=== PATIENT | female | born 1980 | race Native Hawaiian/Other Pacific Islander ===

== ENCOUNTER 2016-10-08 07:56 | Outpatient (CLI) | payer OTHER ==
[~2016-10-08 07:56] MED LIST: ACET7.5T70 PO; AMBIEN5 MG PO; AMITRIPTYLIN75 MG PO; AMOX500C85 PO; BUT/APAP/CA1 PO; CELEXA10 MG PO; CETI10TA PO; CLON1TAB18 PO; FLUO20CA6 PO; FLUT0.05 NAS; IMITREX100 MG PO; LORCET PLUS 7.51 TAB PO; PROM25TA52 PO; PROZAC10 MG PO; TOPAMAX200 MG OR; Z-PAK PO
[2016-10-08 08:15] LABS: PLATELET COUNT 286 K/uL (152-353)
[2016-10-08 08:27] LABS: POTASSIUM 3.5 mmol/L (3.6-5.2); SODIUM 135 mmol/L (136-145)
== END 2016-10-08 08:56 | disposition home or self-care (01) ==
LOC: LABW 07:56
PROVIDERS: Specialist
DX: R40.4 Transient alteration of awareness (principal); G43.709 Chronic migraine without aura, not intractable, without status migrainosus
CPT/HCPCS: 36415; 80053; 80201; 85027; 85651; 86039

== ENCOUNTER 2016-11-10 21:18 | Outpatient (CLI) | payer OTHER | END 2016-11-10 21:22 | disposition short-term general hospital (02) | LOC: AMB 21:18 | DX: G40.89 Other seizures (principal) | CPT/HCPCS: A0425; A0427 ==

== ENCOUNTER 2016-11-10 21:25 | Emergency (ER) | payer OTHER ==
[~2016-11-10] VITALS: Ht 152.4 cm; Wt 49.4 kg
[2016-11-10 21:49] LABS: PLATELET COUNT 285 K/uL (152-353)
[2016-11-10 21:59] LABS: POTASSIUM 3.9 mmol/L (3.6-5.2); SODIUM 133 mmol/L (136-145)
[2016-11-10 23:00] VITALS: BP 99/70; TEMP 98.4
== END 2016-11-10 23:10 | disposition home or self-care (01) ==
LOC: ED 21:25
PROVIDERS: Emergency Medicine
DX: R56.9 Unspecified convulsions (principal); A59.01 Trichomonal vulvovaginitis
CPT/HCPCS: 36415; 80053; 81000; 81025; 82550; 84484; 85027; 96374; 99283; J2405

== ENCOUNTER 2016-11-15 00:16 | Emergency (ER) | payer OTHER ==
[~2016-11-15] VITALS: Ht 152.4 cm; Wt 49.4 kg
[2016-11-15 00:51] LABS: PLATELET COUNT 335 K/uL (152-353)
[2016-11-15 00:57] LABS: POTASSIUM 3.5 mmol/L (3.6-5.2); SODIUM 136 mmol/L (136-145)
[2016-11-15 01:50] VITALS: BP 90/50; TEMP 98.1
== END 2016-11-15 02:04 | disposition home or self-care (01) ==
LOC: ED 00:16
DX: R56.9 Unspecified convulsions (principal); R51 Headache
CPT/HCPCS: 80053; 80307; 81000; 85027; 96361; 96374; 96375; 96376; 99284; G0479; J1100; J1200; J1885; J2405

== ENCOUNTER 2016-12-10 14:04 | Outpatient (CLI) | payer OTHER ==
[2016-12-10 14:25] LABS: POTASSIUM 3.9 mmol/L (3.6-5.2); SODIUM 131 mmol/L (136-145)
== END 2016-12-10 19:09 | disposition home or self-care (01) ==
LOC: LABW 14:04
PROVIDERS: Specialist
DX: R40.4 Transient alteration of awareness (principal)
CPT/HCPCS: 36415; 80048

== ENCOUNTER 2017-02-11 18:06 | Outpatient (CLI) | payer OTHER ==
[2017-02-11] MEDS ORDERED: HYDR10TA47 PO (18:16)
[2017-02-11] MEDS ORDERED: KEPPRA XR500 MG PO (18:16)
== END 2017-02-11 18:08 | disposition short-term general hospital (02) ==
LOC: AMB 18:06
DX: G40.89 Other seizures (principal)
CPT/HCPCS: A0425; A0427

== ENCOUNTER 2017-02-11 18:12 | Emergency (ER) | payer OTHER ==
[~2017-02-11] VITALS: Ht 152.4 cm; Wt 49.9 kg
[2017-02-11] MEDS ORDERED: KEPPRA XR500 MG PO (18:16)
[2017-02-11] MEDS ORDERED: HYDR10TA47 PO (18:16)
[2017-02-11 19:40] VITALS: BP 109/78; TEMP 98
== END 2017-02-11 19:47 | disposition home or self-care (01) ==
LOC: ED 18:12
DX: R56.9 Unspecified convulsions (principal)
CPT/HCPCS: 96361; 96374; 96376; 99284; J2060

== ENCOUNTER 2017-03-02 19:55 | Outpatient (CLI) | payer OTHER ==
[~2017-03-02 19:55] MED LIST changes: +HYDR10TA47 PO; +KEPPRA XR500 MG PO
== END 2017-03-02 19:58 | disposition short-term general hospital (02) ==
LOC: AMB 19:55
DX: G40.89 Other seizures (principal)
CPT/HCPCS: A0425; A0427

== ENCOUNTER 2017-03-02 20:00 | Emergency (ER) | payer OTHER ==
[~2017-03-02] VITALS: Ht 149.9 cm; Wt 56.7 kg
[2017-03-02 20:48] LABS: PLATELET COUNT 341 K/uL (152-353)
[2017-03-02 20:56] LABS: POTASSIUM 3.3 mmol/L (3.6-5.2); SODIUM 135 mmol/L (136-145)
[2017-03-02 22:05] VITALS: BP 110/83; TEMP 98.1
== END 2017-03-02 22:08 | disposition home or self-care (01) ==
LOC: ED 20:00
DX: R56.9 Unspecified convulsions (principal); G43.909 Migraine, unspecified, not intractable, without status migrainosus
CPT/HCPCS: 80053; 80307; 81000; 85027; 93005; 96361; 96374; 96375; 99284; G0479; J1885; J2405

== ENCOUNTER 2018-03-21 10:40 | Outpatient (CLI) | payer OTHER ==
[2018-03-21 11:00] LABS: PLATELET COUNT 324 K/uL (152-353)
[2018-03-21 11:13] LABS: POTASSIUM 3.2 mmol/L (3.6-5.2)
== END 2018-03-21 22:37 | disposition home or self-care (01) ==
LOC: LABW 10:40
PROVIDERS: Specialist
DX: G40.309 Generalized idiopathic epilepsy and epileptic syndromes, not intractable, without status epilepticus (principal); Z79.891 Long term (current) use of opiate analgesic
CPT/HCPCS: 36415; 80053; 80307; 82542; 85027

== ENCOUNTER 2018-12-23 12:07 | Outpatient (CLI) | payer OTHER ==
[2018-12-23 13:13] LABS: PLATELET COUNT 341 K/uL (152-353)
[2018-12-23 13:42] LABS: POTASSIUM 3.7 mmol/L (3.6-5.2)
== END 2018-12-23 19:53 | disposition home or self-care (01) ==
LOC: LABW 12:07
PROVIDERS: Nurse Practitioner
DX: R53.82 Chronic fatigue, unspecified (principal); E78.00 Pure hypercholesterolemia, unspecified; E87.6 Hypokalemia; R73.9 Hyperglycemia, unspecified
CPT/HCPCS: 36415; 80048; 80061; 82306; 83036; 84443; 85027

== ENCOUNTER 2019-07-04 09:32 | Outpatient (CLI) | payer OTHER | END 2019-07-04 23:42 | disposition home or self-care (01) | LOC: RAD 09:32 | DX: J41.0 Simple chronic bronchitis (principal) ==

== ENCOUNTER 2019-07-05 10:43 | Outpatient (CLI) | payer OTHER ==
[2019-07-05 11:24] LABS: PLATELET COUNT 329 K/uL (152-353)
[2019-07-05 11:32] LABS: POTASSIUM 3.8 mmol/L (3.6-5.2)
== END 2019-07-05 23:43 | disposition home or self-care (01) ==
LOC: LABW 10:43
PROVIDERS: Internal Medicine
DX: K62.5 Hemorrhage of anus and rectum (principal)
CPT/HCPCS: 36415; 80048; 85027

== ENCOUNTER 2019-07-06 08:38 | Day surgery (SDC) | payer OTHER ==
[2019-07-06 09:12] LABS: PLATELET COUNT 331 K/uL (152-353)
[2019-07-06 09:20] LABS: POTASSIUM 3.4 mmol/L (3.6-5.2)
== END 2019-07-06 11:20 | disposition home or self-care (01) ==
LOC: OR 08:38
PROVIDERS: Internal Medicine
PROC: 0DJD8ZZ Inspection of Lower Intestinal Tract, Via Natural or Artificial Opening Endoscopic (ICD-10-PCS; principal; 2019-07-06)
DX: K92.1 Melena (principal); R19.4 Change in bowel habit
CPT/HCPCS: 80053; 85027

== ENCOUNTER 2019-07-13 07:34 | Day surgery (SDC) | payer OTHER | END 2019-07-13 11:12 | disposition home or self-care (01) | LOC: OR 07:34 | PROC: 0DJD8ZZ Inspection of Lower Intestinal Tract, Via Natural or Artificial Opening Endoscopic (ICD-10-PCS; principal; 2019-07-13) | DX: K92.1 Melena (principal) | CPT/HCPCS: J1100; J2001; J2250; J2704; J2765 ==

== ENCOUNTER 2019-07-19 08:00 | Observation (INO) | payer OTHER ==
[~2019-07-19] VITALS: Ht 149.9 cm; Wt 63.8 kg
[2019-07-19 09:17] VITALS: BP 101/71; TEMP 98.1; Ht 149.9 cm; Wt 63.8 kg
[2019-07-19 10:49] LABS: PLATELET COUNT 308 K/uL (152-353)
[2019-07-19 11:27] LABS: POTASSIUM 3.9 mmol/L (3.6-5.2)
[2019-07-19 12:00] VITALS: BP 95/64; TEMP 98.3
[2019-07-19] MEDS ORDERED: HYDR10TA47A PO (14:01)
[2019-07-19] MEDS ORDERED: APRODINE1 TAB PO (14:03)
[2019-07-19] MEDS ORDERED: FLUOXETINE40 MG PO (14:04)
[2019-07-19] MEDS ORDERED: CLONAZEP ODT1 MG PO (14:04)
[2019-07-19] MEDS ORDERED: BLISOVI FE 1.5/1 TAB PO (14:05)
[2019-07-19] MEDS ORDERED: HYDROCHLOROT12.5 M1 PO (14:07)
[2019-07-19] MEDS ORDERED: KEPPRA1000 MG PO (14:08)
[2019-07-19] MEDS ORDERED: RANI150T78 PO (14:08)
[2019-07-19 16:00] VITALS: BP 103/74; TEMP 98.3
[2019-07-19 20:03] VITALS: BP 99/69; TEMP 98.4
[2019-07-19 23:32] VITALS: BP 104/73; TEMP 97.5
[2019-07-20] VITALS (10 sets, daily range): BP systolic 85–106; BP diastolic 51–72; TEMP 96.8–98.3
== END 2019-07-20 13:00 | disposition home or self-care (01) ==
LOC: MED/SURG 08:00
PROVIDERS: ADMIT Internal Medicine
PROC: 0DJD8ZZ Inspection of Lower Intestinal Tract, Via Natural or Artificial Opening Endoscopic (ICD-10-PCS; principal; 2019-07-20)
DX: K92.0 Hematemesis (principal); E04.8 Other specified nontoxic goiter; J43.9 Emphysema, unspecified; M15.8 Other polyosteoarthritis; H54.8 Legal blindness, as defined in USA; G40.802 Other epilepsy, not intractable, without status epilepticus; K64.8 Other hemorrhoids
CPT/HCPCS: 80053; 85027; 94664; 96367; 99220; G0378; G0379; J2001; J2250; J2550; J2704

== ENCOUNTER 2019-09-07 18:50 | Emergency (ER) | payer OTHER ==
[~2019-09-07] VITALS: Ht 149.9 cm; Wt 65.8 kg
[~2019-09-07 18:50] MED LIST changes: +APRODINE1 TAB PO; +BLISOVI FE 1.5/1 TAB PO; +CLONAZEP ODT1 MG PO; +FLUOXETINE40 MG PO; +HYDR10TA47A PO; +HYDROCHLOROT12.5 M1 PO; +KEPPRA1000 MG PO; +RANI150T78 PO
[2019-09-07 20:48] VITALS: BP 107/70; TEMP 98.2
== END 2019-09-07 20:48 | disposition home or self-care (01) ==
LOC: ED 18:50
PROC: 2W3MX1Z Immobilization of Left Lower Extremity using Splint (ICD-10-PCS; principal; 2019-09-07)
DX: M25.562 Pain in left knee (principal); W17.2XXA Fall into hole, initial encounter; Y92.89 Other specified places as the place of occurrence of the external cause
CPT/HCPCS: 96372; 99283; J1885

== ENCOUNTER 2019-11-27 13:38 | Outpatient (CLI) | payer OTHER | END 2019-11-27 19:59 | disposition home or self-care (01) | LOC: MRI 13:38 | DX: S83.512A Sprain of anterior cruciate ligament of left knee, initial encounter (principal) ==